=== PATIENT | female | born 1975 | race Caucasian/White ===

== ENCOUNTER 2020-11-23 17:04 | Outpatient (CLI) | payer OTHER, SELFPAY ==
[2020-11-23 17:26] LABS: Basophils Absolute Auto 0.03 K/mm3 (0.00-0.10); Basophils Percent Auto 0.2 % (0.0-1.0); Eosinophils Absolute Auto 0.01 K/mm3 (0.02-0.50); Eosinophils Percent Auto 0.1 % (1.0-6.0); Hematocrit 41.4 % (35.0-49.0); Immature Granulocyte Absolute 0.04 K/mm3 (0.00-0.00); Immature Granulocyte Percent A 0.3 % (0.0-0.0); Lymphocytes Absolute Auto 1.86 K/mm3 (1.10-4.50); Lymphocytes Percent Auto 15.4 % (18.0-42.0); Mean Corpuscular HGB Conc 33.8 g/dL (32.0-36.0); Mean Corpuscular Hemoglobin 28.3 pg (27.0-31.0); Mean Corpuscular Volume 83.6 fL (78.0-102.0); Mean Platelet Volume 9.5 fl (9.2-11.8); Monocytes Percent Auto 3.3 % (2.0-11.0); Neutrophils Absolute Auto 9.7 K/mm3 (1.7-7.2); Neutrophils Percent Auto 80.7 % (50.0-70.0); Platelet Count Result 294 K/mm3 (150-420); Red Blood Count 4.95 M/mm3 (4.20-5.40); Red Cell Distribution Width 12.7 % (11.6-14.4); White Blood Count 12.1 K/mm3 (4.8-10.8)
[2020-11-23 17:42] LABS: D Dimer 0.19 mg/L (0.19-0.50)
[2020-11-23 18:18] LABS: Alanine Aminotransferase 19 U/L (14-59); Albumin Level 3.7 g/dL (3.4-5.0); Alkaline Phosphatase 91 U/L (46-116); Anion Gap 11 mmol/L (8-16); Aspartate Amino Transferase 12 U/L (15-37); Bilirubin,Total 0.2 mg/dL (0.00-1.00); Blood Urea Nitrogen 14 mg/dL (7-18); Calcium 9.2 mg/dL (8.5-10.1); Carbon Dioxide 25 mmol/L (21-32); Chloride 102 mmol/L (98-108); Creatine Kinase 52 U/L (26-192); Estimated Glomerular Filt Rate > 60; Free T3 2.31 pg/mL (2.18-3.98); Free T4 Free Thyroxine 0.83 ng/dL (0.76-1.46); Glucose 98 mg/dL (70-99); Magnesium 1.8 mg/dL (1.8-2.4); Osmolality Calculated 286 mOsm/kg (285-295); Phosphorus 4.2 mg/dL (2.6-4.7); Potassium 3.6 mmol/L (3.5-5.1); Sodium 138 mmol/L (136-145); Thyroid Stimulating Hormone 4.12 uIU/mL (0.36-3.74); Troponin I 7.8 ng/L (0.00-60.4)
[2020-11-23 18:27] LABS: BNP 7.3 pg/mL (0-100)
== END 2020-11-23 17:05 | disposition home or self-care (01) ==
LOC: CHSLAB 17:07
PROVIDERS: PCP Internal Medicine; Visit Provider Internal Medicine
DX: R00.2 Palpitations (principal); R07.89 Other chest pain
CPT/HCPCS: 36415; 80053; 82550; 82553; 83735; 83880; 84100; 84439; 84443; 84481; 84484; 85025; 85380

== ENCOUNTER 2021-01-07 15:23 | Outpatient (CLI) | payer OTHER, SELFPAY ==
--- NOTE | 2021-01-10 13:07 | WPDHOLTEREM ---
Holter/Event Monitor Holter/Event Monitor Date of procedure: 01/07/21 Procedure Type: 48 hour holter monitor Indications: Palpitations Conclusion: 1. 48 hour holter monitor on 01/07/21. 2. Underlying rhythm is sinus rhythm. HR range 53-126 bpm; average HR 84 bpm. 3. There are 3 premature supraventricular complexes and 1 supraventricular triplet. No supraventricular tachycardia. 4. There are 300 premature ventricular complexes and 1 ventricular triplet. No ventricular tachycardia. 5. No sinoatrial or atrioventricular blocks. No significant pauses greater than 2 seconds. 6. Patient reports symptoms of pain under ribs and palpitations which demonstrate sinus rhythm, HR range 87-107 bpm and 2 PVC's in one of the episode.
== END 2021-01-07 15:24 | disposition home or self-care (01) ==
LOC: CHSCARD 15:25
PROVIDERS: PCP Internal Medicine; Visit Provider Internal Medicine Cardiovascular Disease
DX: R00.2 Palpitations (principal)
CPT/HCPCS: 93225; 93226

== ENCOUNTER 2021-02-25 09:24 | Outpatient (CLI) | payer OTHER, SELFPAY ==
--- NOTE | 2021-03-11 17:32 | WPDHOMESLEEP ---
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 She noticed heart palpitations which began several months ago. She does not awaken from sleep feeling short of breath. She frequently awakens at night with heartburn, belching or coughing. She rarely snores and it is never loud enough that others complain about it. She does not have trouble sleeping if she has a cold. She rarely wakes up gasping for breath at night. She does not have breathing problems at night reported to her by others. She does not sweat excessively at night or notices her heart pounding or beating irregularly at night. She occasionally falls asleep in the day, never involuntarily and never while driving. She does not have loss of muscle tone with strong emotion. She does not have daytime difficulties due to excessive sleepiness. She does not feel paralyzed on waking or falling asleep. She does not have vivid dreamlike scenes upon awakening or falling asleep. She does not feel afraid to go to sleep. She has nightmares on occasion. She occasionally remembers her dreams. She constantly has racing thoughts. She occasionally feels sad or depressed. She frequently has anxiety. She constantly has muscular tension. She rarely notices parts of her body jerking she rarely kicks at night. She rarely has crawling and aching feelings in her legs. She rarely has any kind of leg pain at night. She occasionally has morning jaw pain. She frequently grinds her teeth during sleep. She occasionally has bothered by pain during the day. She rarely is awakened by pain at night. She occasionally wakes up feeling stiff in the morning with sore or achy muscles and occasionally wakes up with pain in the neck and spine. She has frequent morning headaches, palpitations, bowel disturbances, concentration difficulties and she takes antacids regularly especially at night. She reports a 20 lb weight gain in the last year. Normal bedtime is midnight, falling asleep within a few minutes, typically not waking up during the night. She wakes in the morning between 7:00 and 8:00 a.m.. On the weekends, she goes to bed at midnight, wakes between 7:00 and 9:00 a.m.. she takes naps in the afternoon or evening. She sometimes feels refreshed after a short 10-15 minute nap. She often feels good in the morning. She feels better in the evening compared other times of day. Habits: Never smoked tobacco. Caffeine 2 cups a day. No alcohol or recreational drugs. [facility] Past Medical History Medical History (Updated 03/11/21 @ 17:53 by Lynda Minaya MD) Chronic abdominal pain Depression Hiatal hernia Hypersomnia Migraine headache Palpitations Skin cancer Transient hypothyroidism Surgical History Surgical History H/O colonoscopy History of cholecystectomy History of partial hysterectomy Hx of esophagogastroduodenoscopy Family History Family History Father Anxiety Mother Hypertension Cystic disease of liver Osteoporosis Sibling Hypertension Social History Social History Smoking status: Never smoker Alcohol intake: current Medications Home Medications Medication Instructions Recorded Confirmed Type ibuprofen 200 mg tablet 200 mg PO Q6H PRN 01/02/21 01/07/21 History Sleep Procedure The sleep study was completed using A[employer] a technically adequate device with seven channels: peripheral arterial tone, actigraphy, bod
[2021-03-11 18:01] VITALS: BMI 37.0
== END 2021-02-25 09:25 | disposition home or self-care (01) ==
LOC: ANHCSM 09:25
PROVIDERS: PCP Internal Medicine; Visit Provider Internal Medicine Cardiovascular Disease
DX: G47.10 Hypersomnia, unspecified (principal)
CPT/HCPCS: 95800

== ENCOUNTER 2022-04-18 18:52 | Emergency (ER) | payer OTHER, SELFPAY ==
--- NOTE | ~2022-04-18 | XR_ITS ---
EXAMINATION: XR chest 1V portable INDICATION: Left anterior chest pain TECHNIQUE: Portable AP chest at 1921 hours COMPARISON: 11/10/2013 FINDINGS: There is a 2.1 cm nodule in the right upper lobe, new since the comparison examination. The re is no pleural effusion or pneumothorax. The cardiomediastinal silhouette is normal. IMPRESSION: 1. New right upper lobe nodule which may be benign or malignant. Follow-up with CT of the chest is re commended. Reviewed, dictated and finalized at location F. IMPRESSION: 1. New right upper lobe nodule which may be benign or malignant. Follow-up with CT of the chest is recommended.
--- NOTE | ~2022-04-18 | CT_ITS ---
EXAMINATION: CT diagnostic chest wo con DATE: 04/18/2022 20:30 INDICATION: Left-sided chest pain TECHNIQUE: Computed tomography (CT) of the chest was performed without intravenous contrast. The dose -length product (DLP) was 221.34 mGy-cm. Automated exposure control and iterative reconstruction tech nique were employed. COMPARISON: None FINDINGS: There is a 2.1 cm rounded cavitary mass of the right upper lobe with central hyperattenuati on and a thin peripheral crescent of surrounding gas within the cavity. No additional pulmonary nodul es are identified. The lungs are otherwise free of focal airspace opacities. There is no pleural effu keanu or pneumothorax. No pathologically enlarged thoracic lymph nodes are identified. The heart size is normal. There is mild thoracic spondylosis. IMPRESSION: 1. Right upper lobe mass with imaging features consistent with an aspergilloma. Reviewed, dictated and finalized at location F.
--- NOTE | 2022-04-18 18:59 | ECG_ITS ---
Measurements Intervals [place] Rate: 98 P: 4 [place]: 149 QRS: -2 QRSD: 85 T: 48 QT: 342 QTc: 437 Interpretive Statements SINUS RHYTHM NO PREVIOUS ECG AVAILABLE FOR COMPARISON Electronically Signed On 04-19-2022 9:32:23 CDT by Ellen Aguilar M.D.
[2022-04-18 19:02] VITALS: BP 152/80; PULSE 83; RESP 20; TEMP 36.6; O2SAT 98
[2022-04-18] MEDS: SODIUM CHLORIDE 0.9% IV 500 ML 999 ML IV CONT (19:23)
[2022-04-18] MEDS: ASPIRIN 325 MG ENTERIC TABLET PO (19:26)
[2022-04-18 19:40] LABS: Basophils Absolute Auto 0.03 K/mm3 (0.00-0.10); Basophils Percent Auto 0.3 % (0.0-1.0); Eosinophils Absolute Auto 0.11 K/mm3 (0.02-0.50); Eosinophils Percent Auto 1.1 % (1.0-6.0); Hematocrit 40.6 % (35.0-49.0); Hemoglobin 13.5 g/dL (12.0-15.0); Immature Granulocyte Absolute 0.03 K/mm3 (0.00-0.00); Immature Granulocyte Percent A 0.3 % (0.0-0.0); Lymphocytes Absolute Auto 3.31 K/mm3 (1.10-4.50); Mean Corpuscular HGB Conc 33.3 g/dL (32.0-36.0); Mean Corpuscular Hemoglobin 28.7 pg (27.0-31.0); Mean Corpuscular Volume 86.4 fL (78.0-102.0); Monocytes Absolute Auto 0.57 K/mm3 (0.10-0.90); Monocytes Percent Auto 5.9 % (2.0-11.0); Neutrophils Absolute Auto 5.7 K/mm3 (1.7-7.2); Neutrophils Percent Auto 58.4 % (50.0-70.0); Platelet Count Result 230 K/mm3 (150-420); Red Cell Distribution Width 12.7 % (11.6-14.4); White Blood Count 9.7 K/mm3 (4.8-10.8)
[2022-04-18 20:08] LABS: Alanine Aminotransferase 17 U/L (14-59); Albumin Level 3.5 g/dL (3.4-5.0); Alkaline Phosphatase 101 U/L (46-116); Anion Gap 7 mmol/L (8-16); Aspartate Amino Transferase 13 U/L (15-37); Bilirubin,Total 0.4 mg/dL (0.00-1.00); Blood Urea Nitrogen 8 mg/dL (7-18); Calcium 8.8 mg/dL (8.5-10.1); Carbon Dioxide 25 mmol/L (21-32); Chloride 104 mmol/L (98-108); Estimated CRCL calculation 97 ml/min; Estimated Glomerular Filt Rate > 60; Glucose 101 mg/dL (70-99); NT Pro B Type Natriuretic Pept 37 pg/mL (0-125); Osmolality Calculated 280 mOsm/kg (285-295); Potassium 3.3 mmol/L (3.5-5.1); Sodium 136 mmol/L (136-145); Total Protein 7.4 g/dL (6.4-8.2); Troponin I 6.6 ng/L (0.00-60.4)
[2022-04-18 20:15] LABS: Lactic Acid Reflex 0.8 mmol/L (0.4-2.0)
[2022-04-18 20:33] VITALS: BP 120/88; PULSE 80; RESP 18; O2SAT 98
--- NOTE | 2022-04-18 21:40 | ED.CHESTPAIN ---
HPI - Chest Pain General Chief Complaint: Anxiety Stated Complaint: chest pain Time Seen by Provider: 04/18/22 18:56 Source: patient and RN notes reviewed Mode of arrival: ambulatory Limitations: no limitations History of Present Illness MD complaint: chest pain (left upper chest in a discrete area x 90 mins.) Onset (ago): minute(s) (90) Timing of current episode: constant Prior episodes: No Onset: during rest Pain location: left chest Pain radiation: left arm Severity: mild Pain scale (0-10): 3 Quality: aching and dull Relieving factors: nothing Exacerbating factors: nothing Associated symptoms: other (none) Treatment prior to arrival: none Related Data Home Medications Medication Instructions Recorded Confirmed ibuprofen 200 mg tablet 200 mg PO Q6H PRN Back Pain 01/02/21 04/18/22 pantoprazole 40 mg tablet,delayed 40 mg PO QAM 04/08/21 04/18/22 release Allergies Allergy/AdvReac Type Severity Reaction Status Date / Time No Known Allergies Allergy Verified 04/10/22 15:09 Review of Systems Review of Systems: All systems reviewed & are unremarkable except as noted in HPI and below Constitutional: Constitutional: Reports no additional constitutional complaints Eyes: Eyes: Reports no additional eye complaints ENT: Reports system reviewed and no additional complaints, except as documented Cardiovascular: Cardiovascular: Reports no additional cardiovascular complaints Respiratory: Respiratory: Reports no additional respiratory complaints Gastrointestinal: Gastrointestinal: Reports no additional gastrointestinal complaints Genitourinary: Genitourinary: Reports no additional female genitourinary complaints Musculoskeletal: Musculoskeletal: Reports no additional musculoskeletal complaints Integumentary/Breasts: Skin/Breast: Reports system reviewed and no additional complaints, except as docu Neurologic: Reports system reviewed and no additional complaints, except as documented Psychiatric: Psychiatric: Reports no additional psychiatric complaints Endocrine: Endocrine: Reports no additional endocrine complaints Hematologic/Lymphatic: Hematologic/Lymphatic: Reports no additional hematologic/lymphatic complaints Allergic/Immunologic: Allergic/Immunologic: Reports no additional allergic/immunologic complaints [facility] Past Medical History Medical History (Updated 04/19/22 @ 09:02 by James De La Fuente MD) Chest pain in adult Chronic abdominal pain Depression Hiatal hernia Hypersomnia Migraine headache Palpitations Pulmonary aspergilloma Skin cancer Transient hypothyroidism Surgical History Surgical History H/O colonoscopy History of cholecystectomy History of partial hysterectomy Hx of esophagogastroduodenoscopy Family History Family History Father Anxiety Mother Hypertension Cystic disease of liver Osteoporosis Sibling Hypertension Social History Social History Smoking status: Never smoker Alcohol intake: current Alcohol use details: rarely Exam Const: General: healthy appearing and no acute distress Nutritional Appearance: well nourished Orientation/consciousness: patient oriented x3 Limitations: no limitations HENMT: Head: normal to inspection Ears: external ears normal, TM's normal bilaterally and EAC's normal General nose exam: Normal external nose present and Normal nares present Face and sinus: normal facial exam and sinuses nontender Mouth: Yes Normal oral and palatal mucosa present and Yes moist mucous membranes Teeth and gingiva: dentition normal Throat: posterior oropharynx normal Eyes: Conjunctivae: conjunctivae normal Pupils: Equal, round and reactive pupils present EOM: EOMs intact bilaterally Neck: Neck: normal visual inspection, no lymphadenopathy and no meningeal signs Chest
[2022-04-18 21:56] VITALS: BP 112/80; PULSE 70; RESP 20; TEMP 36.6; O2SAT 98
== END 2022-04-18 21:58 | disposition home or self-care (01) ==
PROVIDERS: Emergency Provider Emergency Medicine; PCP Internal Medicine
DX: R07.9 Chest pain, unspecified (principal); R91.8 Other nonspecific abnormal finding of lung field
CPT/HCPCS: 36415; 71045; 71250; 80053; 83605; 83880; 84484; 85025; 93005; 96360; 99284; A9270; J7040

== ENCOUNTER 2024-11-07 16:07 | Outpatient (CLI) | payer OTHER, SELFPAY ==
--- NOTE | ~2024-11-07 | XR_ITS ---
3 VIEWS LUMBAR SPINE Ordering provider: Chapin Saba, DC CCST History: . LBP . Comparison: None. FINDINGS: VERTEBRAL BODIES: Attempt of lumbarization of S1. No visible fracture or subluxation. Mild levoscoli osis. DISK SPACES: Narrowing of the disc L2-L3 and L3-L4. Facet joint disease at the level of L5-S1. SOFT TISSUES: Normal. IMPRESSION: No acute osseous abnormality lumbar spine. Multilevel degenerative disc disease. Reviewed, dictated and finalized at location A. ROOM TENDER
--- NOTE | ~2024-11-07 | XR_ITS ---
XR_[id number]_CR Ordering provider: Chapin Saba, DC CCST History: . NECK PAIN . Comparison: None. FINDINGS: VERTEBRAL BODIES: Normal height and alignment. No visible fracture or subluxation. The dens is intact . DISK SPACES: Narrowing of the disc C5-C6 and C6-C7. PARASPINOUS SOFT TISSUES: No prevertebral soft tissue swelling. IMPRESSION: No acute osseous abnormality cervical spine. Degenerative disc changes at the level of C5-C6 and C6-C7. Reviewed, dictated and finalized at location A. NESS CONTROL MANAGER
--- NOTE | ~2024-11-07 | XR_ITS ---
XR foot RT min 3V Ordering provider: Chapin Saba, DC CCST History: . RIGHT FOOT PAIN . Comparison: None. FINDINGS: BONES: No acute fracture or dislocation. Calcaneal spur. JOINT SPACES: Normal. No tarsal coalition. SOFT TISSUES: Normal. IMPRESSION: No acute osseous abnormality of the right foot. Calcaneus spur. Reviewed, dictated and finalized at location A. T CASHIER
--- NOTE | ~2024-11-07 | XR_ITS ---
3 VIEWS THORACIC SPINE Ordering provider: Chapin Saba, DC CCST History: . MIDBACK PAIN . Comparison: None. FINDINGS: VERTEBRAL BODIES: Normal height and alignment. No visible fracture or subluxation. DISK SPACES: Slight narrowing of the disc spaces in the upper thoracic area. SOFT TISSUES: Normal. IMPRESSION: No acute osseous abnormality of the thoracic spine. Multilevel degenerative disc disease in the upper thoracic area. Reviewed, dictated and finalized at location A. CONTENT MANAGER
== END 2024-11-07 16:08 | disposition home or self-care (01) ==
PROVIDERS: PCP Chiropractor; Visit Provider Chiropractor
DX: M51.34 Other intervertebral disc degeneration, thoracic region (principal); M51.369 Other intervertebral disc degeneration, lumbar region without mention of lumbar back pain or lower extremity pain; M51.379 Other intervertebral disc degeneration, lumbosacral region without mention of lumbar back pain or lower extremity pain; M50.322 Other cervical disc degeneration at C5-C6 level; M50.323 Other cervical disc degeneration at C6-C7 level; M77.31 Calcaneal spur, right foot
CPT/HCPCS: 72040; 72070; 72100; 73630